=== PATIENT | female | born 1985 | race Caucasian/White ===

== ENCOUNTER → 2018-06-26 | Outpatient (CLI) | payer OTHER | END | disposition home or self-care (01) | LOC: LAB 11:44 | PROVIDERS: ATTEND Preventive Medicine Preventive Medicine/Occupational Environmental Medicine | DX: Z02.1 Encounter for pre-employment examination (principal) | CPT/HCPCS: 36415; 86706; 86735; 86762; 86765; 86787 ==

== ENCOUNTER → 2019-02-27 | Outpatient (CLI) | payer OTHER ==
[~2019-02-27] MED LIST: NORE0.3529 PO
== END | disposition home or self-care (01) ==
LOC: XYW 09:18
PROVIDERS: ATTEND Internal Medicine
DX: J90 Pleural effusion, not elsewhere classified (principal); R55 Syncope and collapse; R00.2 Palpitations
CPT/HCPCS: 93306

== ENCOUNTER 2019-02-28 20:59 | Inpatient (IN) | payer BC, MEDICAID ==
[~2019-02-28] VITALS: Ht 170.2 cm; Wt 74.0 kg
[2019-02-28 22:00] LABS: Urine WBC None Seen /hpf (0 - 5)
[2019-02-28 22:03] LABS: Basophils # (auto) 0 uL; Basophils % (auto) 0.4 % (0.0-2.0); Eosinophils # (auto) 0.3 uL; Eosinophils % (auto) 2.7 % (0.0-7.0); Hematocrit 42.5 % (36.0-46.0); Hemoglobin 14.8 g/dL (12.2-16.2); Lymphocytes # (auto) 2.7 uL; Lymphocytes % (auto) 28.7 % (10.0-50.0); Mean Corpuscular Hemoglobin 30.3 pg (28.0-32.0); Mean Corpuscular Hgb Conc. 34.9 g/dL (32.0-36.0); Mean Corpuscular Volume 86.8 fL (80.0-100.0); Monocytes # (auto) 0.6 uL; Monocytes % (auto) 6.4 % (0.0-12.0); Neutrophils # (auto) 5.8 uL; Neutrophils % (auto) 61.8 % (37.0-80.0); Nucleated Red Blood Cells % 0.1 %; Platelet Count (auto) 187 10^3/uL (140-450); Red Blood Cells 4.89 10^6/uL (4.0-5.20); White Blood Cell 9.3 10^3/uL (4.4-10.8)
[2019-02-28 22:14] LABS: Urine Pregnacy Test Negative (Negative)
[2019-02-28 22:16] LABS: Urine Bacteria NONE SEEN /hpf (None Seen); Urine Blood Negative /uL (Negative); Urine Specific Gravity 1.012 (1.001-1.035)
[2019-02-28 22:21] LABS: Alcohol, Urine < 3.0 mg/dL (0-5); Amphetamine Screen, Urine NEGATIVE (NEGATIVE); Barbiturate Scree,Urine NEGATIVE (NEGATIVE); Benzodiazephine Screen, Urine NEGATIVE (NEGATIVE); Cannabinoid Screen, Urine NEGATIVE (NEGATIVE); Cocaine Screen, Urine NEGATIVE (NEGATIVE); Opiate Scree,Urine NEGATIVE (NEGATIVE); Phencyclidine Screen, Urine NEGATIVE (NEGATIVE)
[2019-02-28 22:22] LABS: Alanine Aminotransferase 14 U/L (13-56); Anion Gap 6 (5-15); Aspartate Aminotransferase 13 U/L (15-37); Blood Urea Nitrogen 12 mg/dL (7-18); Calcium 8.9 mg/dL (8.5-10.1); Carbon Dioxide 24 mmol/L (21-32); Chloride 111 mmol/L (98-107); Glucose 101 mg/dL (74-106); Potassium 3.6 mmol/L (3.5-5.1); Sodium 141 mmol/L (136-145)
[2019-02-28 22:26] LABS: Alkaline Phosphatase 42 U/L (45-117); Bilirubin, Total 1.7 mg/dL (0.2-1.0); GFR African American 107 mL/min; GFR Non-African American 88 mL/min; Total Protein 7.6 g/dL (6.4-8.2)
[2019-03-01] MEDS ORDERED: MORPHINE SULF INJ 2 MG/ML SYRINGE 1ML IV PRN (10:00)
[2019-03-01] MEDS ORDERED: NITROGLYCERIN 0.4 MG SL TAB SL PRN (10:00)
[2019-03-01] MEDS ORDERED: TEMAZEPAM 15 MG CAP PO PRN (10:00)
[2019-03-01] MEDS ORDERED: PROMETHAZINE HCL 25 MG/ML 1ML IV PRN (10:00)
[2019-03-01] MEDS ORDERED: SODIUM CHLORIDE 0.9% 1,000 ML IV ONE (10:00)
[2019-03-01] MEDS ORDERED: traMADol HCL 50 MG TAB PO PRN (10:00)
[2019-03-01] MEDS: NITROGLYCERIN 0.2MG/HR TOPICAL PATCH TD SCH (10:00)
[2019-03-01] MEDS: ENOXAPARIN SOD 40 MG/0.4 ML SYRINGE SC SCH (11:00)
[2019-03-01] MEDS: ASPirin 81 mg TAB PO SCH (11:00)
[2019-03-01] MEDS: SODIUM CHLORIDE 0.9% 1,000 ML IV SCH ×2 (11:16→17:52)
[2019-03-01 11:42] VITALS: BP 98/61
[2019-03-01 12:16] VITALS: BP 98/61
[2019-03-01] MEDS ORDERED: KETOROLAC TROMETH 15 mg/ml 1ML VL IV PRN (14:30)
[2019-03-01 16:52] VITALS: BP 104/72
[2019-03-01 20:00] VITALS: BP 108/70
[2019-03-01 22:00] VITALS: BP 108/70
[2019-03-02] MEDS: SODIUM CHLORIDE 0.9% 1,000 ML IV SCH ×3 (01:49→17:55)
[2019-03-02 05:00] VITALS: BP 92/55
[2019-03-02 06:20] LABS: Cholesterol 104 mg/dL (< 200); HDL Cholesterol 29 mg/dL (40-59); LDL Cholesterol 69 mg/dL (< 100); Triglycerides 43 mg/dL (< 150)
[2019-03-02 08:49] VITALS: BP 92/53
[2019-03-02] MEDS: ASPirin 81 mg TAB PO SCH (09:44)
[2019-03-02] MEDS: ENOXAPARIN SOD 40 MG/0.4 ML SYRINGE SC SCH (09:44)
[2019-03-02] MEDS: NITROGLYCERIN 0.2MG/HR TOPICAL PATCH TD SCH (09:46)
[2019-03-02] MEDS ORDERED: NORE0.3529 PO (11:13)
[2019-03-02 11:52] VITALS: BP 97/61
[2019-03-02] MEDS ORDERED: ALPRAZolam 0.5 MG TAB PO SCH (14:00)
[2019-03-02 16:19] VITALS: BP 116/71
[2019-03-02 22:00] VITALS: BP 125/83
[2019-03-02] MEDS: ALPRAZolam 0.5 MG TAB PO PRN (23:41)
[2019-03-03] MEDS: SODIUM CHLORIDE 0.9% 1,000 ML IV SCH ×3 (01:33→17:57)
[2019-03-03 05:00] VITALS: BP 96/43
[2019-03-03 08:20] VITALS: BP 92/56
[2019-03-03] MEDS: NITROGLYCERIN 0.2MG/HR TOPICAL PATCH TD SCH (10:00)
[2019-03-03] MEDS: ENOXAPARIN SOD 40 MG/0.4 ML SYRINGE SC SCH (10:10)
[2019-03-03] MEDS: ASPirin 81 mg TAB PO SCH (10:10)
[2019-03-03 13:00] VITALS: BP 109/68
[2019-03-03 17:08] VITALS: BP 122/63
[2019-03-03 22:00] VITALS: BP 122/78
[2019-03-03] MEDS: ALPRAZolam 0.5 MG TAB PO PRN (22:19)
[2019-03-04] MEDS: SODIUM CHLORIDE 0.9% 1,000 ML IV SCH ×3 (02:03→17:49)
[2019-03-04 05:00] VITALS: BP 91/49
[2019-03-04 09:00] VITALS: BP 94/46
[2019-03-04] MEDS: NITROGLYCERIN 0.2MG/HR TOPICAL PATCH TD SCH (10:00)
[2019-03-04] MEDS: ASPirin 81 mg TAB PO SCH (10:12)
[2019-03-04] MEDS: MAGNESIUM OXIDE 400 MG TAB PO SCH (10:12)
[2019-03-04] MEDS: ENOXAPARIN SOD 40 MG/0.4 ML SYRINGE SC SCH (10:13)
[2019-03-04 13:00] VITALS: BP 113/77
[2019-03-04 17:00] VITALS: BP 103/66
[2019-03-04] MEDS: ALPRAZolam 0.5 MG TAB PO PRN (18:07)
[2019-03-04 22:00] VITALS: BP 122/68
[2019-03-05] MEDS: SODIUM CHLORIDE 0.9% 1,000 ML IV SCH ×3 (02:15→18:23)
[2019-03-05 05:31] VITALS: BP 94/46
[2019-03-05 08:52] VITALS: BP 122/68
[2019-03-05] MEDS: ASPirin 81 mg TAB PO SCH (09:04)
[2019-03-05] MEDS: MAGNESIUM OXIDE 400 MG TAB PO SCH (09:04)
[2019-03-05] MEDS: ENOXAPARIN SOD 40 MG/0.4 ML SYRINGE SC SCH (09:05)
[2019-03-05] MEDS: NITROGLYCERIN 0.2MG/HR TOPICAL PATCH TD SCH (09:05)
[2019-03-05] MEDS: ALPRAZolam 0.5 MG TAB PO PRN ×2 (09:05→17:33)
[2019-03-05 09:10] VITALS: BP 103/54
[2019-03-05 11:43] LABS: Basophils # (auto) 0 uL; Basophils % (auto) 0.6 % (0.0-2.0); Eosinophils # (auto) 0.3 uL; Eosinophils % (auto) 4.7 % (0.0-7.0); Lymphocytes # (auto) 1.9 uL; Lymphocytes % (auto) 33.7 % (10.0-50.0); Mean Corpuscular Hemoglobin 30.1 pg (28.0-32.0); Mean Corpuscular Hgb Conc. 34.3 g/dL (32.0-36.0); Mean Corpuscular Volume 87.7 fL (80.0-100.0); Monocytes # (auto) 0.4 uL; Neutrophils # (auto) 3.1 uL; Nucleated Red Blood Cells % 0.1 %; Platelet Count (auto) 153 10^3/uL (140-450); Red Blood Cells 4.34 10^6/uL (4.0-5.20); Red Cell Distribution Width 13.2 % (11.8-14.3); White Blood Cell 5.8 10^3/uL (4.4-10.8)
[2019-03-05 11:52] VITALS: BP 100/47
[2019-03-05 12:02] LABS: Albumin 3.5 g/dL (3.4-5.0); BUN/Creatinine Ratio 14.3; Calcium 8.6 mg/dL (8.5-10.1)
[2019-03-05 12:04] LABS: Bilirubin, Total 1.3 mg/dL (0.2-1.0); Total Protein 6.5 g/dL (6.4-8.2)
[2019-03-05 15:52] VITALS: BP 113/75
[2019-03-05 22:08] VITALS: BP 112/69
[2019-03-06] VITALS (8 sets, daily range): BP systolic 88–110; BP diastolic 44–59
[2019-03-06] MEDS ORDERED: SODIUM CHLORIDE 0.9% 1,000 ML IV SCH (00:01)
[2019-03-06 06:08] LABS: Basophils # (auto) 0.1 uL; Basophils % (auto) 0.8 % (0.0-2.0); Eosinophils # (auto) 0.4 uL; Eosinophils % (auto) 4.9 % (0.0-7.0); Hematocrit 39.3 % (36.0-46.0); Hemoglobin 13.7 g/dL (12.2-16.2); Lymphocytes # (auto) 2.9 uL; Mean Corpuscular Hemoglobin 30.8 pg (28.0-32.0); Mean Corpuscular Hgb Conc. 34.8 g/dL (32.0-36.0); Mean Corpuscular Volume 88.6 fL (80.0-100.0); Monocytes # (auto) 0.5 uL; Monocytes % (auto) 6.9 % (0.0-12.0); Neutrophils # (auto) 3.4 uL; Neutrophils % (auto) 47.4 % (37.0-80.0); Nucleated Red Blood Cells % 0.1 %; Platelet Count (auto) 166 10^3/uL (140-450); Red Blood Cells 4.44 10^6/uL (4.0-5.20); Red Cell Distribution Width 13.3 % (11.8-14.3); White Blood Cell 7.3 10^3/uL (4.4-10.8)
[2019-03-06 06:23] LABS: INR 0.97 (0.9-1.15); Partial Thromboplastin Time 29.7 sec (23.64-32.05)
[2019-03-06 06:26] LABS: BUN/Creatinine Ratio 17.7; Calcium 8.6 mg/dL (8.5-10.1); Potassium 3.6 mmol/L (3.5-5.1)
[2019-03-06] MEDS ORDERED: ANGIOMAX 250 MG VIAL IV ONE (09:16)
[2019-03-06] MEDS ORDERED: IOHEXOL 350 MG/ML 100ML IJ ONE ×2 (09:17→09:25)
[2019-03-06] MEDS ORDERED: MIDAZOLAM HCL 1MG/1ML-2 ML VIAL ONE ×2 (09:17→10:02)
[2019-03-06] MEDS ORDERED: fentaNYL CITRATE 100 MCG/2 ML VL ONE (09:17)
[2019-03-06] MEDS ORDERED: SODIUM CHL 0.9% 0 ML ONE (09:17)
[2019-03-06] MEDS ORDERED: LIDOCAINE 2%HCL (LOCAL ANESTH.) INJ 20ML MDV ONE ×2 (09:22)
[2019-03-06] MEDS ORDERED: ONDANSETRON HCL 4 MG/2 ML VIAL ONE (09:49)
[2019-03-06] MEDS: NITROGLYCERIN 0.2MG/HR TOPICAL PATCH TD SCH (10:00)
[2019-03-06] MEDS: ENOXAPARIN SOD 40 MG/0.4 ML SYRINGE SC SCH (10:00)
[2019-03-06] MEDS ORDERED: diphenhdrAMINE HCL 50 MG/1 ML VL ONE (10:05)
[2019-03-06] MEDS: ASPirin 81 mg TAB PO SCH (12:36)
[2019-03-06] MEDS: MAGNESIUM OXIDE 400 MG TAB PO SCH (12:36)
[2019-03-06] MEDS: ACETAMINOPHEN 500 MG TAB PO PRN ×2 (13:59→23:24)
[2019-03-07 05:00] VITALS: BP 92/46
[2019-03-07 09:00] VITALS: BP 102/57
[2019-03-07] MEDS: NITROGLYCERIN 0.2MG/HR TOPICAL PATCH TD SCH (10:00)
[2019-03-07] MEDS: ENOXAPARIN SOD 40 MG/0.4 ML SYRINGE SC SCH (10:00)
[2019-03-07] MEDS: MAGNESIUM OXIDE 400 MG TAB PO SCH (10:54)
[2019-03-07] MEDS: GENTAMICIN OPTH sol 0.3% 5ml EACHEYE SCH ×2 (10:54→14:00)
[2019-03-07] MEDS: ASPirin 81 mg TAB PO SCH (10:54)
[2019-03-07] MEDS: ACETAMINOPHEN 500 MG TAB PO PRN (10:56)
[2019-03-07 12:47] VITALS: BP 102/57
[2019-03-07 13:00] VITALS: BP 105/69
== END 2019-03-07 13:55 | disposition home or self-care (01) | DRG 287 ==
LOC: ER 21:05 → TELE 21:06 → TELE-CENTR 03-01 11:40
PROVIDERS: ADMIT Internal Medicine; ATTEND Family Medicine
PROC: 4A023N8 Measurement of Cardiac Sampling and Pressure, Bilateral, Percutaneous Approach (ICD-10-PCS; principal; 2019-03-06)
PROC: B2111ZZ Fluoroscopy of Multiple Coronary Arteries using Low Osmolar Contrast (ICD-10-PCS; 2019-03-06)
PROC: B2161ZZ Fluoroscopy of Right and Left Heart using Low Osmolar Contrast (ICD-10-PCS; 2019-03-06)
DX: I51.89 Other ill-defined heart diseases (principal); J90 Pleural effusion, not elsewhere classified; F17.210 Nicotine dependence, cigarettes, uncomplicated; F41.9 Anxiety disorder, unspecified; G43.109 Migraine with aura, not intractable, without status migrainosus; H10.9 Unspecified conjunctivitis; I45.10 Unspecified right bundle-branch block; Z82.3 Family history of stroke; Z82.49 Family history of ischemic heart disease and other diseases of the circulatory system; Z83.3 Family history of diabetes mellitus
CPT/HCPCS: 36415; 70450; 70551; 71045; 71250; 78452; 80048; 80053; 80061; 80307; 81001; 81025; 84484; 84702; 85025; 85379; 85610; 85652; 85730; 86141; 86850; 86900; 86901; 93005; 93017; 93306; 93460; 93566; 95819; 96372; C1751; G0378; J2250; J2405

== ENCOUNTER → 2019-04-01 | Outpatient (CLI) | payer BC, MEDICAID | END | disposition home or self-care (01) | LOC: LAB 13:35 | DX: R00.2 Palpitations (principal); R07.89 Other chest pain; R06.00 Dyspnea, unspecified | CPT/HCPCS: 83880 ==

== ENCOUNTER → 2019-05-24 | Outpatient (CLI) | payer BC, MEDICAID | END | disposition home or self-care (01) | LOC: XYW 08:18 | PROVIDERS: ATTEND Internal Medicine | DX: R00.2 Palpitations (principal); F17.200 Nicotine dependence, unspecified, uncomplicated; F41.9 Anxiety disorder, unspecified; Z82.49 Family history of ischemic heart disease and other diseases of the circulatory system | CPT/HCPCS: 93306 ==

== ENCOUNTER → 2019-05-29 | Outpatient (CLI) | payer BC, MEDICAID | END | disposition home or self-care (01) | LOC: LAB 10:33 | PROVIDERS: ATTEND Specialist | DX: N91.2 Amenorrhea, unspecified (principal); F17.200 Nicotine dependence, unspecified, uncomplicated; F41.9 Anxiety disorder, unspecified; Z82.49 Family history of ischemic heart disease and other diseases of the circulatory system | CPT/HCPCS: 36415; 84702 ==

== ENCOUNTER 2019-06-07 09:39 | Emergency (ER) | payer BC, MEDICAID ==
[~2019-06-07] VITALS: Ht 170.2 cm; Wt 70.8 kg
[2019-06-07] MEDS ORDERED: SODIUM CHLORIDE 0.9% 1,000 ML IV ONE ×2 (10:01)
[2019-06-07 10:16] LABS: Basophils # (auto) 0 uL; Basophils % (auto) 0.2 % (0.0-2.0); Eosinophils # (auto) 0.2 uL; Eosinophils % (auto) 2.4 % (0.0-7.0); Hematocrit 42.8 % (36.0-46.0); Hemoglobin 14.9 g/dL (12.2-16.2); Lymphocytes # (auto) 1.8 uL; Lymphocytes % (auto) 21.6 % (10.0-50.0); Mean Corpuscular Hemoglobin 30.4 pg (28.0-32.0); Mean Corpuscular Hgb Conc. 34.7 g/dL (32.0-36.0); Mean Corpuscular Volume 87.6 fL (80.0-100.0); Monocytes # (auto) 0.5 uL; Monocytes % (auto) 6.4 % (0.0-12.0); Neutrophils # (auto) 5.8 uL; Neutrophils % (auto) 69.4 % (37.0-80.0); Platelet Count (auto) 189 10^3/uL (140-450); Red Blood Cells 4.89 10^6/uL (4.0-5.20); Red Cell Distribution Width 12.7 % (11.8-14.3); White Blood Cell 8.3 10^3/uL (4.4-10.8)
[2019-06-07] MEDS ORDERED: PROMETHAZINE HCL 25 MG/ML 1ML IV ONE (10:30)
[2019-06-07 10:40] LABS: BUN/Creatinine Ratio 7.6; Calcium 9.1 mg/dL (8.5-10.1); Potassium 3.8 mmol/L (3.5-5.1)
[2019-06-07 10:43] LABS: Bilirubin, Total 3.3 mg/dL (0.2-1.0); Total Protein 7.8 g/dL (6.4-8.2)
[2019-06-07 11:51] LABS: Urine Bacteria NONE SEEN /hpf (None Seen); Urine Blood Negative /uL (Negative); Urine Mucus FEW (None Seen); Urine Specific Gravity 1.015 (1.001-1.035); Urine WBC 1 /hpf (0 - 5)
[2019-06-07 12:00] VITALS: BP 97/56
== END 2019-06-07 12:18 | disposition home or self-care (01) ==
LOC: ER 09:39
DX: O99.281 Endocrine, nutritional and metabolic diseases complicating pregnancy, first trimester (principal); E86.0 Dehydration; Z3A.08 8 weeks gestation of pregnancy
CPT/HCPCS: 36415; 80053; 81001; 84702; 85025; 96361; 96374; 99283; J2550

== ENCOUNTER 2020-02-11 14:48 | Emergency (ER) | payer BC, MEDICAID ==
[~2020-02-11] VITALS: Ht 170.2 cm; Wt 68.0 kg
[2020-02-11 14:55] VITALS: BP 106/74
[2020-02-11 15:48] LABS: Basophils # (auto) 0 10 ^3/uL (0-0.2); Basophils % (auto) 0.5 % (0.0-2.0); Eosinophils # (auto) 0.3 10 ^3/uL (0-0.8); Eosinophils % (auto) 3.9 % (0.0-7.0); Hematocrit 43.8 % (36.0-46.0); Hemoglobin 14.9 g/dL (12.2-16.2); Lymphocytes # (auto) 2.2 10 ^3/uL (0.4-5.4); Lymphocytes % (auto) 25.7 % (10.0-50.0); Mean Corpuscular Hemoglobin 30.8 pg (28.0-32.0); Mean Corpuscular Volume 90.7 fL (80.0-100.0); Monocytes # (auto) 0.6 10 ^3/uL (0-1.3); Monocytes % (auto) 6.6 % (0.0-12.0); Neutrophils # (auto) 5.3 10 ^3/uL (1.6-8.6); Neutrophils % (auto) 63.3 % (37.0-80.0); Nucleated Red Blood Cells % 0.1 %; Platelet Count (auto) 192 10^3/uL (140-450); Red Blood Cells 4.83 10^6/uL (4.0-5.20); White Blood Cell 8.4 10^3/uL (4.4-10.8)
[2020-02-11] MEDS ORDERED: IOHEXOL 350 MG/ML 100ML IJ ONE (15:50)
[2020-02-11 16:03] LABS: Albumin 4.1 g/dL (3.4-5.0); Anion Gap 4 (5-15); Blood Urea Nitrogen 12 mg/dL (7-18); Carbon Dioxide 25 mmol/L (21-32); Chloride 109 mmol/L (98-107); Glucose 95 mg/dL (74-106); Potassium 3.9 mmol/L (3.5-5.1); Sodium 138 mmol/L (136-145)
[2020-02-11 16:09] LABS: Alanine Aminotransferase 17 U/L (13-56); Alkaline Phosphatase 44 U/L (45-117); Aspartate Aminotransferase 8 U/L (15-37); BUN/Creatinine Ratio 13.8; Bilirubin, Total 2.6 mg/dL (0.2-1.0); GFR African American 96 mL/min; GFR Non-African American 80 mL/min; Total Protein 7.8 g/dL (6.4-8.2)
== END 2020-02-11 17:01 | disposition home or self-care (01) ==
LOC: ER 14:48 → EEVIPCON 14:48 → ER 17:01
DX: R07.89 Other chest pain (principal); R55 Syncope and collapse; M54.9 Dorsalgia, unspecified
CPT/HCPCS: 36415; 71046; 71275; 80053; 84484; 85025; 85379; 93005; 99285; Q9967

== ENCOUNTER 2020-03-07 19:35 | Emergency (ER) | payer MEDICAID ==
[~2020-03-07] VITALS: Ht 170.2 cm; Wt 62.9 kg
[2020-03-07 19:50] VITALS: BP 133/90
[2020-03-07] MEDS ORDERED: BENZOCAINE (DENTAL) 20 % SPRAY 60ML MT ONE (20:00)
== END 2020-03-07 20:43 | disposition home or self-care (01) ==
LOC: ER 19:35
DX: K02.9 Dental caries, unspecified (principal)

== ENCOUNTER → 2020-03-20 | Outpatient (CLI) | payer MEDICAID | END | disposition home or self-care (01) | LOC: XYW 10:29 | PROVIDERS: ATTEND Internal Medicine | DX: I51.7 Cardiomegaly (principal); R07.9 Chest pain, unspecified | CPT/HCPCS: 93306 ==

== ENCOUNTER → 2020-04-03 | Outpatient (CLI) | payer MEDICAID ==
[~2020-04-03] MED LIST changes: +ALBUTEROL SULF 2.5 MG/0.5ML(0.5%) NEB SOLN ONE
== END | disposition home or self-care (01) ==
LOC: RT 08:39
PROVIDERS: ATTEND Internal Medicine
DX: J98.4 Other disorders of lung (principal); I42.5 Other restrictive cardiomyopathy
CPT/HCPCS: 94060; 94727; 94729

== ENCOUNTER → 2020-08-10 | Outpatient (CLI) | payer MEDICAID ==
[~2020-08-10] MED LIST changes: -ALBUTEROL SULF 2.5 MG/0.5ML(0.5%) NEB SOLN ONE
[2020-08-10 15:23] LABS: Basophils # (auto) 0 10 ^3/uL (0-0.2); Basophils % (auto) 0.6 % (0.0-2.0); Eosinophils # (auto) 0 10 ^3/uL (0-0.8); Eosinophils % (auto) 0.7 % (0.0-7.0); Hematocrit 41.5 % (36.0-46.0); Hemoglobin 14.3 g/dL (12.2-16.2); Lymphocytes % (auto) 33.5 % (10.0-50.0); Mean Corpuscular Hemoglobin 30.4 pg (28.0-32.0); Mean Corpuscular Hgb Conc. 34.4 g/dL (32.0-36.0); Mean Corpuscular Volume 88.5 fL (80.0-100.0); Monocytes # (auto) 0.5 10 ^3/uL (0-1.3); Monocytes % (auto) 8.8 % (0.0-12.0); Neutrophils # (auto) 3.3 10 ^3/uL (1.6-8.6); Neutrophils % (auto) 56.4 % (37.0-80.0); Platelet Count (auto) 207 10^3/uL (140-450); Red Blood Cells 4.68 10^6/uL (4.0-5.20); Red Cell Distribution Width 13.2 % (11.8-14.3); White Blood Cell 5.9 10^3/uL (4.4-10.8)
[2020-08-10 15:44] LABS: Calcium 9.3 mg/dL (8.5-10.1); Potassium 3.7 mmol/L (3.5-5.1)
[2020-08-10 15:47] LABS: BUN/Creatinine Ratio 12.6; Bilirubin, Total 1.8 mg/dL (0.2-1.0); CRP High Sensitivity 0.1 mg/dL (< 0.3); Total Protein 7.8 g/dL (6.4-8.2)
== END | disposition home or self-care (01) ==
LOC: LAB 14:57
PROVIDERS: ATTEND Internal Medicine
DX: R07.9 Chest pain, unspecified (principal); Z20.828 Contact with and (suspected) exposure to other viral communicable diseases
CPT/HCPCS: 36415; 80053; 85025; 85652; 86038; 86141; 86431

== ENCOUNTER 2020-08-14 17:38 | Emergency (ER) | payer MEDICAID ==
[~2020-08-14] VITALS: Ht 170.2 cm; Wt 70.3 kg
[2020-08-14 17:41] VITALS: BP 120/73
== END 2020-08-14 18:27 | disposition home or self-care (01) ==
LOC: ER 17:38 → EEVIPCON 17:38 → ER 18:27
DX: M79.604 Pain in right leg (principal)
CPT/HCPCS: 93971

== ENCOUNTER → 2020-08-20 | Outpatient (CLI) | payer OTHER | END | disposition home or self-care (01) | LOC: LAB 17:21 | PROVIDERS: ATTEND Physician Assistant | DX: Z20.822 Contact with and (suspected) exposure to COVID-19 (principal) | CPT/HCPCS: C9803; U0003 ==

== ENCOUNTER → 2020-09-10 | Outpatient (CLI) | payer MEDICAID ==
[2020-09-10 16:14] LABS: Basophils # (auto) 0 10 ^3/uL (0-0.2); Basophils % (auto) 0.5 % (0.0-2.0); Eosinophils # (auto) 0.2 10 ^3/uL (0-0.8); Eosinophils % (auto) 2.3 % (0.0-7.0); Hematocrit 38.9 % (36.0-46.0); Hemoglobin 13.4 g/dL (12.2-16.2); Lymphocytes # (auto) 2.4 10 ^3/uL (0.4-5.4); Lymphocytes % (auto) 33.1 % (10.0-50.0); Mean Corpuscular Hemoglobin 30.8 pg (28.0-32.0); Mean Corpuscular Hgb Conc. 34.5 g/dL (32.0-36.0); Mean Corpuscular Volume 89.3 fL (80.0-100.0); Monocytes # (auto) 0.6 10 ^3/uL (0-1.3); Monocytes % (auto) 8.1 % (0.0-12.0); Neutrophils # (auto) 4.1 10 ^3/uL (1.6-8.6); Platelet Count (auto) 198 10^3/uL (140-450); Red Blood Cells 4.35 10^6/uL (4.0-5.20); Red Cell Distribution Width 13.3 % (11.8-14.3); White Blood Cell 7.3 10^3/uL (4.4-10.8)
== END | disposition home or self-care (01) ==
LOC: LAB 15:58
PROVIDERS: ATTEND Internal Medicine
DX: R00.2 Palpitations (principal); R55 Syncope and collapse; R07.9 Chest pain, unspecified
CPT/HCPCS: 36415; 85025; 85652; 86141

== ENCOUNTER 2020-10-21 19:19 | Emergency (ER) | payer MEDICAID ==
[~2020-10-21] VITALS: Ht 170.2 cm; Wt 68.0 kg
[2020-10-21 19:59] VITALS: BP 123/65
== END 2020-10-21 21:12 | disposition left against medical advice (07) ==
LOC: EEVIPCON 19:23 → ER 19:23
DX: M54.2 Cervicalgia (principal); Z53.21 Procedure and treatment not carried out due to patient leaving prior to being seen by health care provider

== ENCOUNTER 2020-11-28 21:36 | Inpatient (IN) | payer MEDICAID ==
[~2020-11-28] VITALS: Ht 170.2 cm; Wt 72.3 kg
[2020-11-28] MEDS ORDERED: ONDANSETRON HCL 4 MG/2 ML VIAL IV ONE (22:00)
[2020-11-28] MEDS ORDERED: MORPHINE SULFATE 4 MG/ML SYR/VIAL IV ONE (22:00)
[2020-11-28] MEDS ORDERED: ASPirin 81 mg TAB PO ONE (22:00)
[2020-11-28 22:14] LABS: Basophils # (auto) 0 10 ^3/uL (0-0.2); Basophils % (auto) 0.3 % (0.0-2.0); Eosinophils # (auto) 0.3 10 ^3/uL (0-0.8); Eosinophils % (auto) 2.6 % (0.0-7.0); Hematocrit 46.4 % (36.0-46.0); Hemoglobin 16.2 g/dL (12.2-16.2); Lymphocytes # (auto) 3.6 10 ^3/uL (0.4-5.4); Lymphocytes % (auto) 28.8 % (10.0-50.0); Mean Corpuscular Hemoglobin 30.9 pg (28.0-32.0); Mean Corpuscular Hgb Conc. 34.9 g/dL (32.0-36.0); Mean Corpuscular Volume 88.4 fL (80.0-100.0); Monocytes # (auto) 0.9 10 ^3/uL (0-1.3); Monocytes % (auto) 7.4 % (0.0-12.0); Neutrophils # (auto) 7.6 10 ^3/uL (1.6-8.6); Neutrophils % (auto) 60.9 % (37.0-80.0); Nucleated Red Blood Cells % 0.1 %; Platelet Count (auto) 229 10^3/uL (140-450); Red Blood Cells 5.25 10^6/uL (4.0-5.20); Red Cell Distribution Width 12.8 % (11.8-14.3); White Blood Cell 12.4 10^3/uL (4.4-10.8)
[2020-11-28 22:33] LABS: Anion Gap 6 (5-15); Blood Urea Nitrogen 14 mg/dL (7-18); Calcium 8.7 mg/dL (8.5-10.1); Carbon Dioxide 25 mmol/L (21-32); Chloride 106 mmol/L (98-107); Glucose 105 mg/dL (74-106); Magnesium 2.6 mg/dL (1.6-2.6); Potassium 3.7 mmol/L (3.5-5.1); Sodium 137 mmol/L (136-145)
[2020-11-28 22:41] LABS: Alanine Aminotransferase 21 U/L (13-56); Alkaline Phosphatase 51 U/L (45-117); Aspartate Aminotransferase 14 U/L (15-37); BUN/Creatinine Ratio 20.3; GFR African American 125 mL/min; GFR Non-African American 104 mL/min; Total Protein 7.7 g/dL (6.4-8.2)
[2020-11-28 23:09] LABS: INR 0.94 (0.9-1.15)
[2020-11-29] MEDS ORDERED: ONDANSETRON HCL 4 MG/2 ML VIAL IV ONE (01:30)
[2020-11-29] MEDS ORDERED: MORPHINE SULFATE 4 MG/ML SYR/VIAL IV ONE (01:30)
[2020-11-29] MEDS ORDERED: ONDANSETRON HCL 4 MG/2 ML VIAL IV PRN (03:00)
[2020-11-29] MEDS ORDERED: HYDROcodone-ACET 5/325MG TAB PO PRN (03:00)
[2020-11-29] MEDS ORDERED: ACETAMINOPHEN 325 MG TAB PO PRN (03:00)
[2020-11-29] MEDS ORDERED: MORPHINE SULF INJ 2 MG/ML SYRINGE 1ML IV PRN (03:00)
[2020-11-29 03:55] LABS: Urine Bacteria NONE SEEN /hpf (None Seen); Urine Blood Negative /uL (Negative); Urine Specific Gravity 1.007 (1.001-1.035); Urine WBC <1 /hpf (0 - 5)
[2020-11-29 04:45] VITALS: BP 102/71
[2020-11-29 05:00] VITALS: BP 102/71
[2020-11-29] MEDS: dilTIAZem HCL 60 MG TAB PO SCH ×3 (05:30→21:49)
[2020-11-29] MEDS ORDERED: DILT40TA PO (05:37)
[2020-11-29 09:00] VITALS: BP 119/70
[2020-11-29] MEDS: ASPirin 81 mg TAB PO SCH (09:56)
[2020-11-29] MEDS: ENOXAPARIN SOD 40 MG/0.4 ML SYRINGE SC SCH (09:56)
[2020-11-29 13:00] VITALS: BP 99/64
[2020-11-29 17:00] VITALS: BP 95/62
[2020-11-29 22:00] VITALS: BP 103/56
[2020-11-30 05:00] VITALS: BP 100/52
[2020-11-30] MEDS: dilTIAZem HCL 60 MG TAB PO SCH (05:49)
[2020-11-30 08:44] VITALS: BP 100/62
[2020-11-30] MEDS: ASPirin 81 mg TAB PO SCH (09:30)
[2020-11-30] MEDS: ENOXAPARIN SOD 40 MG/0.4 ML SYRINGE SC SCH (09:30)
[2020-11-30 13:00] VITALS: BP 96/58
== END 2020-11-30 17:23 | disposition home or self-care (01) | DRG 203 ==
LOC: EEVIPCON 21:36 → ER 21:36 → TELE 11-29 02:59 → TELE-CENTR 11-29 04:40
PROVIDERS: ADMIT Internal Medicine; ATTEND Internal Medicine
DX: R07.89 Other chest pain (principal); I42.1 Obstructive hypertrophic cardiomyopathy; I44.30 Unspecified atrioventricular block; D72.829 Elevated white blood cell count, unspecified; F41.9 Anxiety disorder, unspecified; Z82.3 Family history of stroke; Z82.49 Family history of ischemic heart disease and other diseases of the circulatory system; Z20.822 Contact with and (suspected) exposure to COVID-19
CPT/HCPCS: 36415; 71045; 80053; 81001; 83735; 83880; 84443; 84484; 85025; 85610; 85730; 87426; 93005; 93306; 96374; 96375; 96376; G0378; J2405

== ENCOUNTER 2021-01-06 07:29 | Emergency (ER) | payer MEDICAID ==
[~2021-01-06] VITALS: Ht 170.2 cm; Wt 70.3 kg
[~2021-01-06 07:29] MED LIST changes: +DILT40TA PO; -NORE0.3529 PO
[2021-01-06 08:01] VITALS: BP 113/80
[2021-01-06 08:20] LABS: Urine Bacteria FEW /hpf (None Seen); Urine Blood 1+ /uL (Negative); Urine Specific Gravity 1.006 (1.001-1.035); Urine WBC <1 /hpf (0 - 5)
[2021-01-06] MEDS ORDERED: KETOROLAC TROMETH 60MG/2ML VIAL IM ONE (08:45)
== END 2021-01-06 09:34 | disposition home or self-care (01) ==
LOC: ER 07:29
DX: M54.5 Low back pain (principal); Z79.899 Other long term (current) drug therapy
CPT/HCPCS: 72100; 81001; 81025; 96372; 99284; J1885